=== PATIENT | male | born 1940 | race Caucasian/White ===

== ENCOUNTER 2016-05-03 20:13 | Inpatient (IN) | payer MEDICARE ==
[~2016-05-03] VITALS: Ht 182.9 cm; Wt 75.5 kg
[~2016-05-03 20:13] MED LIST: Piperacillin-Tazo 3.375 Gm Inj 3.375 GM in Dextrose 5% Minibag Plus 50 ML IV ONE
[2016-05-03] MEDS ORDERED: Ondansetron 2 mg/mL 2 mL Inj IVPUSH PRN (21:50)
[2016-05-03] MEDS ORDERED: Alum-Mag Hydrox-Simeth 30 mL Suspension PO PRN (21:50)
[2016-05-03] MEDS ORDERED: Polyethylene Glycol (PEG) 17 Gm Powder PO PRN (21:50)
[2016-05-03 22:00] VITALS: BP 118/72; PULSE 96; RESP 18; O2SAT 96
[2016-05-03] MEDS ORDERED: Potassium Chloride 20 mEq SR Tablet PO ONE (22:05)
[2016-05-03] MEDS ORDERED: HYDROmorphone 0.5 mg/0.5 mL iSecure Syringe IVPUSH PRN (22:05)
[2016-05-03] MEDS ORDERED: 0.9% Sodium Chloride 1,000 ML IV SCH (22:05)
--- NOTE | 2016-05-03 22:30 | NUR ---
admission patient direct admit from [facility]. telephone report received from hanna rice. patient alert and oriented x3 on arrival. able to stand for weight. complains of pain to abd. rates "6" . hypoactive bowel tones. abd is soft, tender to palpation. npo. given sponges for mouth moisture. reviewed plan of care with patient. Dr Vera at bedside. patient worried about "surgery tonight." Dr Vera explained ERCP in am. reviewed fall precautions. verbalized udnerstanding. care ongoing.
[2016-05-03 22:48] VITALS: PULSE 92
[2016-05-03] MEDS ORDERED: ASPI81TA3 PO (23:37)
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
[2016-05-03] MEDS ORDERED: 0.9% Sodium Chloride 1,000 ML IV ONE (23:50)
[2016-05-04] VITALS (16 sets, daily range): BP systolic 94–125; BP diastolic 65–78; PULSE 64–140; RESP 12–18; O2SAT 90–97
[2016-05-04] MEDS: Heparin 5,000 Unit/mL Inj SUBQ SCH ×2 (00:20→08:30)
[2016-05-04] MEDS ORDERED: 0.9% Sodium Chloride 500 ML IV ONE ×2 (01:35→03:10)
[2016-05-04] MEDS ORDERED: Lactated Ringer's 1,000 ML IV SCH (03:10)
--- NOTE | 2016-05-04 03:15 | NUR ---
tachycardia notified by tele HR 140. bp as documented. patient pale and diaphoretic. denies pain. ekg obtained. notified Dr Vera. Dr Vera to bedside. patient awake. alert. bladder scan 320. plan to additional ns [address] Vera plan to change iv fluids to LR when bolus is complete will monitor closely
[2016-05-04 04:12] LABS: Mean Corpuscular Hemoglobin 30.8 pg (27.0-35.0); Mean Corpuscular Volume 88.5 fL (81-100); Platelet Count 165 bil/L (150-400)
[2016-05-04 04:24] LABS: INR 1.27 ratio
[2016-05-04 04:30] LABS: Magnesium 1.4 mg/dL (1.6-2.6)
[2016-05-04 04:35] LABS: EOSINOPHILS % (AUTO) 0 % (0-5); MONOCYTES % (AUTO) 4 % (4-12); NEUTROPHILS % (AUTO) 83 % (40-74)
--- NOTE | 2016-05-04 04:35 | NUR ---
unable to void patient unable to void. previous bladder scan 2 hours ago 320ml. has not voided since arrival to the hospital. notified Dr Vera for straight cath. request. Addendum: 05/04/16 at 0626 by JUJU PEREZ RN straight cathed 400ml dark shmuel urine. sent ua.
[2016-05-04 04:36] LABS: BASOPHILS % (AUTO) 0 % (0-3)
[2016-05-04 05:14] LABS: APPEARANCE,URINE CLOUDY (CLEAR,HAZY); COLOR,URINE AMBER (YELLOW); ICTOTEST,URINE POSITIVE (Negative); OCCULT BLOOD,URINE SMALL (NEGATIVE)
--- NOTE | 2016-05-04 05:35 | NUR ---
Blood cultures Phillip [facility] staff called at 0515, reported that patient had two preliminary positive blood cultures, gram negative rods in both anaerobic bottles. paged, no new orders as patient is already on antibiotics. Primary RN aware.
[2016-05-04] MEDS: Sodium Chloride LOK Flush 10 mL Syringe IVFLUSH SCH ×2 (08:30→18:38)
[2016-05-04] MEDS ORDERED: Influenza (Adult) Vaccine 0.5 mL Syringe IM ONE (08:30)
[2016-05-04 10:53] LABS: Mean Corpuscular Volume 88.4 fL (81-100)
[2016-05-04] MEDS ORDERED: 0.9% Sodium Chloride 250 ML ONE (11:07)
[2016-05-04 11:17] LABS: Bilirubin, Direct 4.5 mg/dL (0.0-0.3)
[2016-05-04] MEDS: Piper-Tazo 3.375 Gm/50 mL D5W Minibag Plus - Q8H over 4 hrs IV SCH ×4 (11:28→18:38)
--- NOTE | 2016-05-04 12:45 | NUR ---
Catheter insertion Patient unable to void during AM shift, denies urgency or feeling of needing to void. Bladder scan shows > 400 mL. 16 fr vidales inserted without difficulty (per MD order) and approximately 400 mL dark shmuel urine obtained. Balloon inflated with 10 mL sterile saline without difficulty. Patient tolerated procedure well. Bed low and locked, call light in reach, bed alarm on for safety, care and frequent rounding ongoing.
--- NOTE | 2016-05-04 14:15 | NUR ---
Avendaño Catheter P: Pt unable to void during shift. I: Bladder scanned with >400mL of urine. Per doctors orders, Avendaño catheter was inserted. Slight difficulty on insertion, patient tolerated well. E: 400 mL dark shmuel urine output in catheter bag. Will continue to monitor.
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
--- NOTE | 2016-05-04 15:47 | NUR ---
Off floor to endo Patient off floor to endo at 1545 by denice. Vitals stable, denies pain and in no apparent distress. Chart with patient, material handling technician aware. Report given to endo RN at bedside.
[2016-05-04] MEDS ORDERED: Lactated Ringer's 1,000 ML IV ONE (15:50)
--- NOTE | 2016-05-04 16:03 | PCM.HPANE ---
Patient Data Date of Service: May 04, 2016 Surgeon Admitting Provider:Amber Weller DO Attending Provider:Amber Weller DO Primary Care Physician:Seun Coles MD Other Provider: Reason for Visit Cholangitis CHOLANGITIS Ht/WT & BMI Height (Feet): 6 Height (Inches): 0.00 Weight (Kilograms): 75.500 Body Mass Index 22.00 Allergies Coded Allergies: No Known Allergies (Unverified , 05/03/16) Past Anesthesia History Anesthesia History: Denies:: Anesthesia Reactions, Fam Anesthesia Reaction, Fam Malignant Hypertherm, Malignant Hyperthermia Diabetes History Hx Diabetes?: No MRSA MRSA: No Medications Blood Thinner: Aspirin Hypertension Medication: No Home Meds Incl Beta Ruthie: No Reported Medications Aspirin Chew 81 Mg Chew81 Mg PO DAILY PRN For Headache Ref 0 05/03/16 History History of ENT Problems?: No Hx of Heart Problems?: No Other History/Comments >4 METs Hx of Respiratory Problem?: No Hx Neurologic Problems?: No Hx of GI Problems?: Yes Gastrointestinal History: Positive for:: Gall Bladder Disease (possible stones ) Hx of Problems?: No Male Hx: Denies:: Prostate Problems Hx Musculoskeletal Problems?: No Hx of Psycho/Social Problems?: No Hx Surgeries?: Yes ([facility] for a repair to the left forearm saw accident) Hx Any Other Health Problems?: Yes Other History: Denies:: Cancer Hospitalization Thyroid Disease History Blood Transfusions: Positive for:: Accept Blood Products? Denies:: Blood Transfuse Reaction Blood Transfusions Hx Diabetes: No Hx Alcohol Use: Yes (monthly and light)Hx Substance Use: No Smoking Status: Never Smoker Stop/Bang Treated for Sleep Apnea?: No Do You Have a CPAP Machine?: No S-Snoring: Do You Snore Loudly: No T-Tired: feel tired, fatigued: No O-Obsered: Observed not breath: No P-Blood Pressure: treated: No B- Body Mass Index > 35 kg/m2: No A- Age over 50: Yes N- Neck Large Circumference: No G- Gender Male: Yes BEATRIZ Total Score: 2 Risk Assessment Category Category 1A: Patient has history of documented sleep apnea, and HAS NOT received any narcotic, sedative or anesthesia administration during this stay. Category 1B: Patient has history of documented sleep apnea, and HAS received any narcotic , sedative or anesthesia administration during this stay Category 2: Patient has SUSPECTED Obstructive Sleep Apnea, and HAS received any narcotic , sedative or anesthesia administration during this stay. Category 3: Patient has SUSPECTED Obstructive Sleep Apnea and HAS NOT received narcotic, sedative or anesthesia administration during this stay. Category 4: Outpatient in Procedural Areas with known sleep apnea or who screen positive for High Risk via the STOP/BANG questionnaire. Exam Exam Vital Signs Vital Signs Date Time Temp Pulse Resp B/P Pulse Ox O2 Delivery O2 Flow Rate FiO2 05/04/16 15:51 36.7 65 16 119/77 96 Room Air 05/04/16 13:53 36.6 70 16 120/73 96 Room Air 05/04/16 08:44 36.7 71 16 109/67 96 Room Air 05/04/16 08:00 76 General Appearance: Alert, Oriented X3 HEENT/AIRWAY: MP 1 Lungs: Clear to Auscultation Heart: Regular Rate/Rhythm, No Murmurs/Rubs/Gallops Meds/Labs/Diagnostics Admission Meds Current Medications Sodium Chloride (Normal Saline) 1,000 ml @ 100 mls/hr Q10H IV Last administered on 05/03/16 23:35; Start 05/03/16 at 22:05; Stop 05/04/16 at 03:11; Status DC Potassium Chloride (K-Dur) 20 meq OT ONCE PO Last administered on 05/03/16 23: 49; Start 05/03/16 at 22:05; Stop 05/03/16 at 23:08; Status DC Heparin Sodium (Porcine) 5000 unit 5,000 unit Q8 SUBQ Last administered on 00:20; Start 05/04/16 at 00:30; Stop 05/04/16 at 08:49; Status DC Sodium Chloride 1,000 ml @ 0 mls/hr Q0M ONCE IV Last administered on 05/03/16 23:56; Start 05/03/16 at 23:50; Stop 05/03/16 at 23:51; Status DC Sodium Chloride 500 ml @ 0 mls/hr Q0M ONCE IV Last administered on 05/04/16 02: 46; Start 05/04/16 at 01:35; Stop 05/04/16 at 01:55; Status DC Sodium Chloride 500 ml @ 0 mls/hr Q0M ONCE IV Last administered on 05/04/16 03: 33; Start 05/04/16 at 03:10; Stop 05/04/16 at 03:17; Status DC Lactated Ringer's 1,000 ml @ 100 mls/hr Q10H IV Last administered on 05/04/16 04:21; Start 05/04/16 at 03:10; Stop 05/04/16 at 12:20; Status DC Piperacillin Sod/ Tazobactam Sod 3.375 gm/Dextrose/ Water 50 ml @ 12.5 mls/hr Q8H IV Last administered on 05/04/16 11:28; Start 05/04/16 at 09:30 Sodium Chloride (Normal Saline) 250 ml @ STK-MED ONCE .ROUTE Last administered on 05/04/16 11:29; Start 05/04/16 at 11:07; Stop 05/04/16 at 11:08; Status DC Labs Test 05/04/16 00:15 05/04/16 02:10 05/04/16 03:50 05/04/16 05:00 Hold Mata Top Tube Received (Received) Lactic Acid Level 1.8mmol/L (0.4-2.0) Neutrophils (%) (Auto) 83% (40-74) Lymphocytes (%) (Auto) 4% (14-46) Monocytes (%) (Auto) 4% (4-12) Eosinophils (%) (Auto) 0% (0-5) Basophils (%) (Auto) 0% (0-3) Band Neutrophils % 8% (1-5) Metamyelocytes % 1% (0-0) Erythrocyte Sedimentation Rate 33mm/hr (0-30) Prothrombin Time 13.7sec (8.1-12.5) Prothromb Time International Ratio 1.27ratio Sodium Level 136mEq/L (134-144) Potassium Level 3.8mEq/L (3.5-5.2) Chloride Level 102mEq/L (97-108) Carbon Dioxide Level 18mmol/L (18-29) Blood Urea Nitrogen 29mg/dL (8-27) Creatinine 1.23mg/dL (0.76-1.27) Estimat Glomerular Filtration Rate 61mL/min (>59) Glucose Level 129mg/dL (60-99) Calcium Level 7.5mg/dL (8.5-10.1) Magnesium Level 1.4mg/dL (1.6-2.6) C-Reactive Protein 27.0mg/dL (0.0-0.5) Urine Color Alysa (YELLOW) Urine Appearance Cloudy (CLEAR,HAZY) Urine pH 5.0 (5.0-8.0) Urine Specific [place] 1.025 (1.003-1.035) Urine Protein 100mg/dL (NEG,TRACE) Urine Glucose (UA) Negativemg/dL (NEGATIVE) Urine Ketones Tracemg/dL (NEGATIVE) Urine Occult Blood Small (NEGATIVE) Urine Nitrite Negative (NEGATIVE) Urine Bilirubin Large (NEGATIVE) Urine Ictotest Positive (Negative) Urine Urobilinogen 1.0mg/dL (NORMAL) Urine Leukocyte Esterase Negative (NEGATIVE) Urine RBC 0-2/hpf (0-2) Urine WBC 0-5/hpf (0-5) Urine Epithelial Cells Few/hpf (NONE-MOD) Urine Crystals Amorphous urates (NONE Urine Bacteria Moderate/hpf (NONE-FEW) Urine Hyaline Casts None/lpf (NONE) Urine Granular Casts None seen (NONE SEEN) Urine Waxy Casts None seen (NONE SEEN) Urine Red Blood Cell Casts None seen (NONE SEEN) Urine White Blood Cell Casts None seen (NONE SEEN) Urine Mucus Present (None Seen) Urine Trichomonas None seen (NONE SEEN) Urine Yeast None (NONE SEEN) Urinalysis Comment None Urine Culture Reflexed Indicated Test 05/04/16 10:30 White Blood Count 17.4th/mm3 (3.8-10.1) Red Blood Count 4.04mil/mm3 (4.40-5.80) Hemoglobin 12.1g/dL (13.8-17.2) Hematocrit 35.7% (41.0-50.0) Mean Corpuscular Volume 88.4fL (81-100) Mean Corpuscular Hemoglobin 30.0pg (27.0-35.0) Mean Corpuscular Hemoglobin Concent 33.9% (32.0-37.0) Red Cell Distribution Width 13.8% (12.3-15.4) Platelet Count 137bil/L (150-400) Total Bilirubin 6.3mg/dL (0.0-1.2) Direct Bilirubin 4.5mg/dL (0.0-0.3) Aspartate Amino Transf (AST/SGOT) 271U/L (0-50) Alanine Aminotransferase (ALT/SGPT) 293U/L (0-44) Alkaline Phosphatase 169U/L (25-160) Total Protein 5.1g/dL (6.4-8.4) Albumin 2.9g/dL (3.4-5.0) Lipase 7U/L (13-60) Plan Impression Patient chart reviewed, patient interviewed and anesthestic plan with risks, benefits, and alternatives discussed, and informed consent obtained. ASA Physical Status: ASA2 Mod Systemic Disease Anesthetic Plan: GA Bene/Risks/Altern/Consents: Yes HP Complete Prior to Induction: Yes Helder Rosas MD May 04, 2016 16:03
[2016-05-04] MEDS ORDERED: Lactated Ringer's 500 ML IV PRN (16:04)
--- NOTE | 2016-05-04 16:04 | PCM.HPANE ---
Patient Data Date of Service: May 04, 2016 Surgeon Admitting Provider:Amber Weller DO Attending Provider:Amber Weller DO Primary Care Physician:Seun Coles MD Other Provider: Reason for Visit Cholangitis CHOLANGITIS Ht/WT & BMI Height (Feet): 6 Weight (Kilograms): 75.500 Body Mass Index 22.54 Allergies Coded Allergies: No Known Allergies (Unverified , 05/03/16) Past Anesthesia History Anesthesia History: Denies:: Anesthesia Reactions Diabetes History Hx Diabetes?: No MRSA MRSA: No Medications Reported Medications Aspirin Chew 81 Mg Chew81 Mg PO DAILY PRN For Headache Ref 0 05/03/16 History History of ENT Problems?: No Hx of Heart Problems?: No Hx of Respiratory Problem?: No Hx Neurologic Problems?: No Hx of GI Problems?: Yes (ascending cholangiitis with sepsis) Hx of Problems?: No Male Hx: Denies:: Prostate Problems Hx Musculoskeletal Problems?: No Hx of Psycho/Social Problems?: No Hx Surgeries?: Yes ([facility] for a repair to the left forearm saw accident) Hx Any Other Health Problems?: Yes Other History: Denies:: Cancer Hospitalization Thyroid Disease History Blood Transfusions: Positive for:: Accept Blood Products? Denies:: Blood Transfuse Reaction Blood Transfusions Hx Diabetes: No Hx Alcohol Use: Yes (monthly and light)Hx Substance Use: No Smoking Status: Never Smoker Stop/Bang Treated for Sleep Apnea?: No Do You Have a CPAP Machine?: No S-Snoring: Do You Snore Loudly: No T-Tired: feel tired, fatigued: No O-Obsered: Observed not breath: No P-Blood Pressure: treated: No B- Body Mass Index > 35 kg/m2: No A- Age over 50: Yes N- Neck Large Circumference: No G- Gender Male: Yes BEATRIZ Total Score: 1 Risk Assessment Category Category 1A: Patient has history of documented sleep apnea, and HAS NOT received any narcotic, sedative or anesthesia administration during this stay. Category 1B: Patient has history of documented sleep apnea, and HAS received any narcotic , sedative or anesthesia administration during this stay Category 2: Patient has SUSPECTED Obstructive Sleep Apnea, and HAS received any narcotic , sedative or anesthesia administration during this stay. Category 3: Patient has SUSPECTED Obstructive Sleep Apnea and HAS NOT received narcotic, sedative or anesthesia administration during this stay. Category 4: Outpatient in Procedural Areas with known sleep apnea or who screen positive for High Risk via the STOP/BANG questionnaire. Exam Exam Vital Signs Vital Signs Date Time Temp Pulse Resp B/P Pulse Ox O2 Delivery O2 Flow Rate FiO2 05/04/16 13:53 36.6 70 16 120/73 96 Room Air 05/04/16 08:44 36.7 71 16 109/67 96 Room Air 05/04/16 08:00 76 General Appearance: Alert, Oriented X3 HEENT/AIRWAY: MP 2 Lungs: Clear to Auscultation Heart: Exam Unremarkable, Regular Rate/Rhythm Meds/Labs/Diagnostics Admission Meds Current Medications Sodium Chloride (Normal Saline) 1,000 ml @ 100 mls/hr Q10H IV Last administered on 05/03/16 23:35; Start 05/03/16 at 22:05; Stop 05/04/16 at 03:11; Status DC Potassium Chloride (K-Dur) 20 meq OT ONCE PO Last administered on 05/03/16 23: 49; Start 05/03/16 at 22:05; Stop 05/03/16 at 23:08; Status DC Heparin Sodium (Porcine) 5000 unit 5,000 unit Q8 SUBQ Last administered on 00:20; Start 05/04/16 at 00:30; Stop 05/04/16 at 08:49; Status DC Sodium Chloride 1,000 ml @ 0 mls/hr Q0M ONCE IV Last administered on 05/03/16 23:56; Start 05/03/16 at 23:50; Stop 05/03/16 at 23:51; Status DC Sodium Chloride 500 ml @ 0 mls/hr Q0M ONCE IV Last administered on 05/04/16 02: 46; Start 05/04/16 at 01:35; Stop 05/04/16 at 01:55; Status DC Sodium Chloride 500 ml @ 0 mls/hr Q0M ONCE IV Last administered on 05/04/16 03: 33; Start 05/04/16 at 03:10; Stop 05/04/16 at 03:17; Status DC Lactated Ringer's 1,000 ml @ 100 mls/hr Q10H IV Last administered on 05/04/16 04:21; Start 05/04/16 at 03:10; Stop 05/04/16 at 12:20; Status DC Piperacillin Sod/ Tazobactam Sod 3.375 gm/Dextrose/ Water 50 ml @ 12.5 mls/hr Q8H IV Last administered on 05/04/16 11:28; Start 05/04/16 at 09:30 Sodium Chloride (Normal Saline) 250 ml @ ud STK-MED ONCE .ROUTE Last administered on 05/04/16 11:29; Start 05/04/16 at 11:07; Stop 05/04/16 at 11:08; Status DC Labs Test 05/04/16 00:15 05/04/16 02:10 05/04/16 03:50 05/04/16 05:00 Hold Mata Top Tube Received (Received) Lactic Acid Level 1.8mmol/L (0.4-2.0) Neutrophils (%) (Auto) 83% (40-74) Lymphocytes (%) (Auto) 4% (14-46) Monocytes (%) (Auto) 4% (4-12) Eosinophils (%) (Auto) 0% (0-5) Basophils (%) (Auto) 0% (0-3) Band Neutrophils % 8% (1-5) Metamyelocytes % 1% (0-0) Erythrocyte Sedimentation Rate 33mm/hr (0-30) Prothrombin Time 13.7sec (8.1-12.5) Prothromb Time International Ratio 1.27ratio Sodium Level 136mEq/L (134-144) Potassium Level 3.8mEq/L (3.5-5.2) Chloride Level 102mEq/L (97-108) Carbon Dioxide Level 18mmol/L (18-29) Blood Urea Nitrogen 29mg/dL (8-27) Creatinine 1.23mg/dL (0.76-1.27) Estimat Glomerular Filtration Rate 61mL/min (>59) Glucose Level 129mg/dL (60-99) Calcium Level 7.5mg/dL (8.5-10.1) Magnesium Level 1.4mg/dL (1.6-2.6) C-Reactive Protein 27.0mg/dL (0.0-0.5) Urine Color Alysa (YELLOW) Urine Appearance Cloudy (CLEAR,HAZY) Urine pH 5.0 (5.0-8.0) Urine Specific [place] 1.025 (1.003-1.035) Urine Protein 100mg/dL (NEG,TRACE) Urine Glucose (UA) Negativemg/dL (NEGATIVE) Urine Ketones Tracemg/dL (NEGATIVE) Urine Occult Blood Small (NEGATIVE) Urine Nitrite Negative (NEGATIVE) Urine Bilirubin Large (NEGATIVE) Urine Ictotest Positive (Negative) Urine Urobilinogen 1.0mg/dL (NORMAL) Urine Leukocyte Esterase Negative (NEGATIVE) Urine RBC 0-2/hpf (0-2) Urine WBC 0-5/hpf (0-5) Urine Epithelial Cells Few/hpf (NONE-MOD) Urine Crystals Amorphous urates (NONE Urine Bacteria Moderate/hpf (NONE-FEW) Urine Hyaline Casts None/lpf (NONE) Urine Granular Casts None seen (NONE SEEN) Urine Waxy Casts None seen (NONE SEEN) Urine Red Blood Cell Casts None seen (NONE SEEN) Urine White Blood Cell Casts None seen (NONE SEEN) Urine Mucus Present (None Seen) Urine Trichomonas None seen (NONE SEEN) Urine Yeast None (NONE SEEN) Urinalysis Comment None Urine Culture Reflexed Indicated Test 05/04/16 10:30 White Blood Count 17.4th/mm3 (3.8-10.1) Red Blood Count 4.04mil/mm3 (4.40-5.80) Hemoglobin 12.1g/dL (13.8-17.2) Hematocrit 35.7% (41.0-50.0) Mean Corpuscular Volume 88.4fL (81-100) Mean Corpuscular Hemoglobin 30.0pg (27.0-35.0) Mean Corpuscular Hemoglobin Concent 33.9% (32.0-37.0) Red Cell Distribution Width 13.8% (12.3-15.4) Platelet Count 137bil/L (150-400) Total Bilirubin 6.3mg/dL (0.0-1.2) Direct Bilirubin 4.5mg/dL (0.0-0.3) Aspartate Amino Transf (AST/SGOT) 271U/L (0-50) Alanine Aminotransferase (ALT/SGPT) 293U/L (0-44) Alkaline Phosphatase 169U/L (25-160) Total Protein 5.1g/dL (6.4-8.4) Albumin 2.9g/dL (3.4-5.0) Lipase 7U/L (13-60) Plan Impression Patient chart reviewed, patient interviewed and anesthestic plan with risks, benefits, and alternatives discussed, and informed consent obtained. ASA Physical Status: ASA2 Mod Systemic Disease Anesthetic Plan: GA Bene/Risks/Altern/Consents: Yes HP Complete Prior to Induction: Yes Other see other note...this note created in error Helder Rosas MD May 04, 2016 15:46
[2016-05-04] MEDS ORDERED: fentaNYL-PF 50 mCg/mL 2 mL Inj IVPUSH PRN (16:05)
[2016-05-04] MEDS ORDERED: Ondansetron 2 mg/mL 2 mL Inj IVPUSH PRN (16:05)
[2016-05-04] MEDS ORDERED: hydrALAZINE 20 mg/mL Inj IVPUSH PRN (16:05)
[2016-05-04] MEDS ORDERED: EPHEDrine Sulfate 50 mg/mL Inj IVPUSH PRN (16:05)
[2016-05-04] MEDS ORDERED: Atropine 0.4 mg/mL Inj IVPUSH PRN (16:05)
[2016-05-04] MEDS ORDERED: Labetalol 5 mg/mL 4 mL Inj IV PRN (16:05)
[2016-05-04] MEDS ORDERED: Phenylephrine 10,000 mCg/mL Inj IVPUSH PRN (16:05)
[2016-05-04] MEDS ORDERED: HYDROmorphone 1 mg/mL Inj IVPUSH PRN (16:05)
[2016-05-04] MEDS ORDERED: MetoCLOpramide 5 mg/mL 2 mL Inj IVPUSH PRN (16:05)
[2016-05-04] MEDS: Lactated Ringer's 1,000 ML IV SCH ×2 (16:20→18:37)
--- NOTE | 2016-05-04 16:35 | PCM.PNMED ---
Subjective Date of Service May 04, 2016 Subjective denies any new issues/complaints Exam Vital Signs Vital Sign - Last Date Time Temp Pulse Resp B/P Pulse Ox O2 Delivery O2 Flow Rate FiO2 05/04/16 15:51 36.7 65 16 119/77 96 Room Air 05/04/16 03:07 2.00 Intake and Output 05/03/16 05/03/16 05/04/16 Cumulative From/Thru 15:00 23:00 07:00 05/03/16 22:12 - 05/04/16 04:59 Intake Total 2300 ml 2300 ml Output Total 400 ml 400 ml Balance 1900 ml 1900 ml Intake IV Total 2300 ml 2300 ml Output Urine Total 400 ml 400 ml Exam General: Mildly somnolent but easily aroused, Oriented X3, Cooperative Head: Normocephalic, atraumatic. Eyes:Icteric sclerae. Mouth: Mouth Normal, Mucous Membranes dry Neck: Neck supple with full range of motion. Chest & Lungs: Clear to auscultation bilaterally Cardiovascular: Regular Rate/Rhythm Abdomen: nontender abdominal exam (without rebound tenderness in non- epigastric quadrants), Non-distended, No masses, Hypoactive bowel tones, Soft Musculoskeletal: Normal Range of Motion Extremities: No cyanosis/clubbing/edema bilat Skin: Jaundice. Well-healed surgical scars of the left forearm, and left upper quadrant of the abdomen. Neurological: Grossly Neurologically Intact Psych: Normal mood and affect. Thought process and content intact. IVs and Medications Medications Reviewed: Medications were reviewed in detail Lab and Diagnostics Result Diagram: 05/04/16 1030 05/04/16 0350 Microbiology Blood cultures were drawn at [facility], And I have called and spoken with their lab/micro Department to request that they fax all preliminary and final blood culture reports to the cracking unit operator in the [facility] We will add blood cultures 2 sets (please note that these will be done following the administration of Unasyn at [facility]). X-Rays, CTs and MRIs Abdominal ultrasound performed at [facility]: Impression: 1. Distended gallbladder containing stones and sludge. 2. Choledocholithiasis with associated moderate intrahepatic and extrahepatic biliary ductal dilation. Dr. Ledy Jackson 05/03/16 7:41 PM 12-lead ECG Not performed this visit Assessment & Plan 75-year-old male with no significant past medical history who presented to [facility] ER with 5 day complaint of abdominal pain and fever. # Acute abdominal pain, jaundice, fever. Present on admission. -Clinical presentation consistent with acute ascending cholangitis. -Likely sources of obstruction: Gallstones, stricture, biliary malignancy, sclerosing cholangitis. -appreciate GI consult. will f/u w/ recs -plan for ERCP later today -c/w empiric antibiotics: Zosyn (he did receive a dose of Unasyn at [facility] , but based on our antibiogram Zosyn more appropriate for GNR) given severity of presentation. * Antibiotic course duration likely for 7-10 days, but could be shorter with rapid response and source control. * Adjust antibiotics as appropriate based on blood (and/or other) cultures obtained. -Await blood cultures ([facility] will be faxing preliminary and final blood culture reports) -IV fluids and supportive care # Sepsis, severe and acute. Present on admission. improving -Secondary to above -Management as above # Leukocytosis with bandemia, acute. Present on admission. -Secondary to above -Management as above # Grossly abnormal LFTs, acute. Present on admission. -Management as above # Hypokalemia, acute. Present on admission. -Likely related to sepsis as above -resolved. f/u # Borderline creatinine at 1.2 (unsure of baseline). Present on admission. -Likely related to sepsis as above, and possible contribution from volume depletion (given the patient's dry appearance) -Fluid administration as above Dispo: 2-3 days GI Prophylaxis: Not indicated VTE Prophylaxis: Sub-Q Heparin (Unfractionated) Resuscitation Status: CPR: Attempt Resuscitation Time spent 35 min Naresh Abdul May 04, 2016 16:35
--- NOTE | 2016-05-04 18:14 | PCM.ANEP2 ---
Post Anesthesia Evaluation ASA/CMS Post Anesthesia Date of Service: May 04, 2016 VS in Patient's Normal Range?: Yes Resp Stable; Airway Patent?: Yes CV Function & Hydration Stable: Yes Mental Status Recovered?: Yes Pain control Satisfactory?: Yes N/V Control Satisfactory?: Yes Helder Rosas MD May 04, 2016 18:14
--- NOTE | 2016-05-04 18:14 | PCM.ANEP1 ---
Post Anesthesia Phase 1 PACU Phase 1 Assessment Date of Service: May 04, 2016 Vital Signs Vital Signs Date Time Temp Pulse Resp B/P Pulse Ox O2 Delivery O2 Flow Rate FiO2 05/04/16 15:51 36.7 65 16 119/77 96 Room Air 05/04/16 13:53 36.6 70 16 120/73 96 Room Air Anesthetic Administered: GA Level of Alertness: Sleepy, easy to arouse CESAR's with Equal Strength: Yes Pain: No Nausea or Vomiting: No Oxygen Delivery: Simple Mask Helder Rosas MD May 04, 2016 18:14
[2016-05-04] MEDS: 0.9% Sodium Chloride 1,000 ML IV SCH (19:16)
--- NOTE | 2016-05-04 19:19 | DRSVH ---
PROCEDURE: X-RAY E.R.C. BILIARY DUCTS ([id number]) INDICATIONS: 75 year-old male with cholangitis. TECHNIQUE: 6 fluoroscopic spot films were acquired by the gastroenterology service during ERCP proced ure. COMPARISON: None available. FINDINGS: There is moderate dilation of the extrahepatic bile duct, with distal tapering. Balloon occ lusion cholangiogram demonstrates no discrete intraluminal filling defects to suggest stones. Inferio r vena cava filter is present. IMPRESSION: Moderate dilation of the extrahepatic bile duct, with distal tapering suggesting strictur e or perhaps underlying occult mass. Dictated by: Troy Azevedo M.D. on 05/04/2016 at 19:17 Approved by: Troy Azevedo M.D. on 05/04/2016 at 19:19
--- NOTE | 2016-05-04 19:26 | NUR ---
return to floor patient returned to floor from ercp. alert and oriented x3 npo. given spongees for dry mouth. vs stable. denies pain. bed alarm on.
--- NOTE | 2016-05-04 19:40 | ENDO ---
[address] [address] ENDOSCOPY PROCEDURE PATIENT: GÉNESIS LOMBARDO : 1940 MR#: [id number] ADMIT: 05/03/2016 JOB ID: [id number] PROCEDURE: Endoscopic retrograde cholangiopancreatogram with biliary sphincterotomy, papilla dilatation, stone destruction, and stone extraction. INDICATIONS: A 75-year-old male with cholangitis. COMPLICATIONS: None identified. The patient did appear to have a very mild Bridget-Che tear at the end of the procedure evidenced by some irritation at the level of the GE junction. PROCEDURE INFORMATION: After the risks and benefits were explained, written and verbal informed consent was obtained. The patient was brought into the endoscopy suite and placed into the prone position following induction of anesthesia with endotracheal intubation by Dr. Helder Rosas. The scope was introduced into the mouth, though the bite block, and advanced under indirect visualization to the stomach. The scope was then guided into the second portion of the duodenum. The patient appeared to have had a prior sphincterotomy. PD was easily identified. There was a small patent orifice extending up into the biliary tree with bile emanating from it. This was adjacent a duodenal diverticulum. Wire access was quite easy. We then identified under fluoro a large stone in the mid duct with pretty impressive biliary dilatation upstream, up to about 15 mm or so. We extended the sphincterotomy slightly. We then balloon dilated the sphincterotomy using a Hurricane 10 mm balloon. I then used a 3 cm trapezoid and destroyed part of the stone, dragged it out with the basket. We then cleaned up the biliary tree with a balloon tipped catheter, as we used both a [employer] and a multistaged Olympus catheter over the 0.025 VisiGlide guidewire (the Olympus 20 mm sphincterotome was used to extend the cut). At the end of the procedure, a considerable amount of stone debris was seen successfully removed. Final sweeps of the duct did not yield any further debris and contrast and bile was seen easily flowing from the sphincterotomy. The scope was brought back in the stomach. Excess fluid and air removed. The scope was then withdrawn from the patient, who tolerated the procedure well. An indomethacin suppository was used to prophylax against post ERCP pancreatitis. FINDINGS: As above. ENDOSCOPIC DIAGNOSES: Choledocholithiasis status post extension of biliary sphincterotomy, stone destruction, and stone extraction. RECOMMENDATIONS: 1. Continue antibiotics and n.p.o. status. 2. Surgical consultation to be considered for laparoscopic cholecystectomy. 3. Follow labs. 4. PPI over the least the next week in light of the mild Bridget-Che iatrogenic injury.
--- NOTE | 2016-05-04 21:00 | NUR ---
communication patient's sister Emily to bedside. questions regarding the plan of care for the patient. called Dr Cole, Dr Cole spoke to Emily. Emily is also requesting that she be present when the surgery consult occurs. number at front of chart, to arrange for this.
[2016-05-05] VITALS (7 sets, daily range): BP systolic 109–135; BP diastolic 65–84; PULSE 62–77; RESP 18–20; O2SAT 94–96
[2016-05-05] MEDS: Sodium Chloride LOK Flush 10 mL Syringe IVFLUSH SCH ×3 (00:30→16:30)
[2016-05-05] MEDS: Piper-Tazo 3.375 Gm/50 mL D5W Minibag Plus - Q8H over 4 hrs IV SCH ×6 (01:12→17:28)
[2016-05-05] MEDS: 0.9% Sodium Chloride 1,000 ML IV SCH ×3 (03:51→20:25)
[2016-05-05 06:58] LABS: Mean Corpuscular Hemoglobin 30.5 pg (27.0-35.0)
--- NOTE | 2016-05-05 12:56 | PROG NOTE ---
[address] [address] PROGRESS NOTE PATIENT: GÉNESIS LOMBARDO : 1940 MR#: [id number] ADMIT: 05/03/2016 JOB ID: [id number] DATE: 05/05/2016 SUBJECTIVE: He has done well post ERCP. Denies any pain. OBJECTIVE: Vital signs stable. The patient is in no distress. Abdomen is soft. LABORATORY DATA: Bilirubin is down at 2.9, white count is down to 12.5, hemoglobin 11.7, platelets 130. Blood cultures here are negative. ASSESSMENT AND RECOMMENDATIONS: A 75-year-old male with choledocholithiasis and mild cholangitis by history. He did not have pus seen in the duct at the time of ERCP. I would, however, recommend following up on the blood culture results that were obtained and should be pending, or even potentially resulted, at [facility] from yesterday. In the meantime I would continue antibiotics. I would defer dietary advancement today to Dr. Love. I understand that his surgery is scheduled for tomorrow. I have put the patient on a little proton pump inhibitor while in the hospital in light of the mild irritation at the GE junction from the scope during the procedure. Currently he is asymptomatic on that score. I will sign off for now. Please feel free to contact me with any questions or concerns at [phone]. Please note: Today's visit was a no-charge visit for me. Please do not apply a physician charge for this particular progress note.
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
--- NOTE | 2016-05-05 16:24 | NUR ---
Social Work: Initial Assessment Data: Pt is a 75 y/o male admitted for cholangitis. Pt's PCP is Dr Coles, pt's insurance is Medicare. EMR reviewed. Readmit score is 2. WATER TANKER DRIVER met with pt at bedside, role explained. Pt states he lives in [place] with his brother and sister in a single story home where he uses no DME. Pt has no hx of HH or SNF, pt drives, pt has no LTC or VA benefits. WATER TANKER DRIVER will continue to follow for possible HH need. WATER TANKER DRIVER spoke with pt's sister, Emily, , who requested information for [facility] Medicaid for pt. WATER TANKER DRIVER will call [facility] to request this. Assessment: Pt who is independent at baseline. Plan: Pt will d/c home via POV when medically stable. WATER TANKER DRIVER will call [facility] to request this. WATER TANKER DRIVER will continue to follow for possible HH need. ARUNA Jarrell Addendum: 05/05/16 at 1627 by KASIE NAPOLES Amended: Links added.
--- NOTE | 2016-05-05 17:22 | PCM.PNMED ---
Subjective Date of Service May 05, 2016 Subjective denies any new issues/complaints Exam Vital Signs Vital Sign - Last Date Time Temp Pulse Resp B/P Pulse Ox O2 Delivery O2 Flow Rate FiO2 05/05/16 15:01 36.2 68 20 122/73 94 Nasal Cannula 2.00 Intake and Output 05/04/16 05/04/16 05/05/16 Cumulative From/Thru 15:00 23:00 07:00 05/03/16 22:12 - 05/05/16 06:09 Intake Total 770 ml 1250 ml 4320 ml Output Total 550 ml 1200 ml 2150 ml Balance 220 ml 50 ml 2170 ml Intake Oral 0 ml 0 ml 0 ml IV Total 770 ml 1250 ml 4320 ml Output Urine Total 550 ml 1200 ml 2150 ml Exam General: Alert, Cooperative Head: Normocephalic, atraumatic. Eyes:Icteric sclerae. Mouth: Mouth Normal, Mucous Membranes dry Neck: Neck supple with full range of motion. Chest & Lungs: Clear to auscultation bilaterally Cardiovascular: Regular Rate/Rhythm Abdomen: nontender abdominal exam, Non-distended, No masses, Hypoactive bowel tones, Soft Musculoskeletal: Normal Range of Motion Extremities: No cyanosis/clubbing/edema bilat Skin: Jaundice. Well-healed surgical scars of the left forearm, and left upper quadrant of the abdomen. Neurological: Grossly Neurologically Intact Psych: Normal mood and affect. Thought process and content intact. IVs and Medications Medications Reviewed: Medications were reviewed in detail Lab and Diagnostics Result Diagram: 05/05/16 0620 05/05/16 0500 Microbiology Blood cultures were drawn at [facility], And I have called and spoken with their lab/micro Department to request that they fax all preliminary and final blood culture reports to the community relations liaison in the [facility] We will add blood cultures 2 sets (please note that these will be done following the administration of Unasyn at [facility]). X-Rays, CTs and MRIs Abdominal ultrasound performed at [facility]: Impression: 1. Distended gallbladder containing stones and sludge. 2. Choledocholithiasis with associated moderate intrahepatic and extrahepatic biliary ductal dilation. Dr. Ledy Jackson 05/03/16 7:41 PM 12-lead ECG Not performed this visit Assessment & Plan 75-year-old male with no significant past medical history who presented to [facility] ER with 5 day complaint of abdominal pain and fever. # Acute abdominal pain, jaundice, fever. Present on admission. -Clinical presentation consistent with acute ascending cholangitis. -Likely sources of obstruction: Gallstones, stricture, biliary malignancy, sclerosing cholangitis. -appreciate GI consult. will f/u w/ recs -post Endoscopic retrograde cholangiopancreatogram with biliary sphincterotomy, papilla dilatation, stone destruction, and stone extraction on 05/04/16. -c/w empiric antibiotics: Zosyn -Await blood cultures ([facility] will be faxing preliminary and final blood culture reports) -appreciate surgery consult today as well. tentative plan for lap юлия tomorrow. # Sepsis, severe and acute. Present on admission. clinically resolved. -Secondary to above -Management as above # Leukocytosis with bandemia, acute. Present on admission. resolving -Secondary to above -Management as above # Grossly abnormal LFTs, acute. Present on admission. -Management as above # Hypokalemia, acute. Present on admission. -Likely related to sepsis as above -resolved. f/u # Borderline creatinine at 1.2 (unsure of baseline). Present on admission. Resolved. -Likely related to sepsis as above, and possible contribution from volume depletion (given the patient's dry appearance) -Fluid administration as above Dispo: 2-3 days GI Prophylaxis: Not indicated VTE Prophylaxis: Sub-Q Heparin (Unfractionated) Resuscitation Status: CPR: Attempt Resuscitation Time spent 35 min Naresh Abdul May 05, 2016 17:22
[2016-05-06] VITALS (13 sets, daily range): BP systolic 100–185; BP diastolic 68–90; PULSE 57–74; RESP 18–24; O2SAT 96–100
[2016-05-06] MEDS: Sodium Chloride LOK Flush 10 mL Syringe IVFLUSH SCH ×3 (01:02→15:42)
[2016-05-06] MEDS: Piper-Tazo 3.375 Gm/50 mL D5W Minibag Plus - Q8H over 4 hrs IV SCH ×8 (01:13→17:37)
--- NOTE | 2016-05-06 02:33 | NUR ---
Activity Pt remained in bed for the shift. Cooperative with cares, conversational at times. No complaints of pain or discomfort. Left room with call light in hand.
[2016-05-06] MEDS: Pantoprazole 20 mg ER24 Tablet PO SCH (06:11)
[2016-05-06] MEDS ORDERED: Lidocaine PF 1% 30 mL Inj ONE (07:40)
[2016-05-06] MEDS ORDERED: Propofol 10,000 mCg/mL 20 mL Inj ONE ×2 (07:40→08:33)
[2016-05-06] MEDS ORDERED: Phenylephrine/NS 100 mCg/mL 10 mL Syringe IVPUSH ONE ×2 (07:40→08:33)
[2016-05-06] MEDS ORDERED: Rocuronium 10 mg/mL 5 mL Inj ONE (07:40)
[2016-05-06] MEDS ORDERED: Ondansetron 2 mg/mL 2 mL Inj ONE ×2 (07:40→08:33)
[2016-05-06] MEDS ORDERED: fentaNYL-PF 50 mCg/mL 2 mL Inj ONE ×2 (07:40→08:33)
[2016-05-06] MEDS ORDERED: Glycopyrrolate 0.2 mg/mL 5 mL Inj ONE (07:40)
[2016-05-06] MEDS ORDERED: Dexamethasone 4 mg/mL Inj ONE (07:40)
[2016-05-06] MEDS ORDERED: Neostigmine 1 mg/mL 5 mL Inj ONE (07:40)
[2016-05-06] MEDS: 0.9% Sodium Chloride 1,000 ML IV SCH ×3 (08:30→22:47)
[2016-05-06] MEDS ORDERED: Succinylcholine Chloride 20 mg/mL 5 mL Inj ONE (08:33)
[2016-05-06] MEDS ORDERED: EPHEDrine/NS 5 mg/mL 5 mL Syringe ONE (08:33)
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
[2016-05-06] MEDS ORDERED: Lactated Ringer's 1,000 ML IV ONE (09:23)
[2016-05-06] MEDS ORDERED: Iopamidol-300 50 mL Inj IV ONE (10:21)
[2016-05-06] MEDS ORDERED: Bupivacaine 0.5%/EPI 50 mL Inj INFILTRATE ONE (10:21)
[2016-05-06] MEDS ORDERED: Lactated Ringer's 500 ML IV PRN (10:51)
[2016-05-06] MEDS ORDERED: Lactated Ringer's 1,000 ML IV SCH (10:51)
[2016-05-06] MEDS ORDERED: fentaNYL-PF 50 mCg/mL 2 mL Inj IVPUSH PRN (10:55)
[2016-05-06] MEDS ORDERED: Phenylephrine 10,000 mCg/mL Inj IVPUSH PRN (10:55)
[2016-05-06] MEDS ORDERED: EPHEDrine Sulfate 50 mg/mL Inj IM PRN (10:55)
[2016-05-06] MEDS ORDERED: HYDROmorphone 1 mg/mL Inj IVPUSH PRN (10:55)
[2016-05-06] MEDS ORDERED: Ondansetron 2 mg/mL 2 mL Inj IVPUSH PRN (10:55)
[2016-05-06] MEDS ORDERED: hydrOXYzine Inj 25 MG/1 mL SDV IM PRN (10:55)
[2016-05-06] MEDS ORDERED: EPHEDrine Sulfate 50 mg/mL Inj IVPUSH PRN (10:55)
--- NOTE | 2016-05-06 10:57 | NUR ---
ALEX attempted Pt out of room for surgery. Cari Martinez MSW
--- NOTE | 2016-05-06 15:42 | PCM.PNMED ---
Subjective Date of Service May 06, 2016 Subjective denies any new issues/complaints Exam Vital Signs Vital Sign - Last Date Time Temp Pulse Resp B/P Pulse Ox O2 Delivery O2 Flow Rate FiO2 05/06/16 14:08 36.4 58 19 100/68 98 Nasal Cannula 2.00 Intake and Output 05/05/16 05/05/16 05/06/16 Cumulative From/Thru 15:00 23:00 07:00 05/03/16 22:12 - 05/06/16 06:38 Intake Total 1924 ml 1583 ml 7827 ml Output Total 700 ml 900 ml 3750 ml Balance 1224 ml 683 ml 4077 ml Intake Oral 596 ml 400 ml 996 ml IV Total 1328 ml 1183 ml 6831 ml Output Urine Total 700 ml 900 ml 3750 ml # Bowel Movements 1 0 1 Exam General: Alert, Cooperative Head: Normocephalic Eyes:Icteric sclerae (improving) Mouth: Mucous Membranes moist Neck: Neck supple with full range of motion. Chest & Lungs: Clear to auscultation bilaterally Cardiovascular: Regular Rate/Rhythm Abdomen: nontender abdominal exam, Non-distended, No masses, Hypoactive bowel tones, Soft Musculoskeletal: Normal Range of Motion Extremities: No cyanosis/clubbing/edema bilat Neurological: Grossly Neurologically Intact IVs and Medications Medications Reviewed: Medications were reviewed in detail Lab and Diagnostics Result Diagram: 05/05/16 0620 05/05/16 0500 Microbiology Blood cultures were drawn at [facility], And I have called and spoken with their lab/micro Department to request that they fax all preliminary and final blood culture reports to the community relations representative in the [facility] We will add blood cultures 2 sets (please note that these will be done following the administration of Unasyn at [facility]). X-Rays, CTs and MRIs Abdominal ultrasound performed at [facility]: Impression: 1. Distended gallbladder containing stones and sludge. 2. Choledocholithiasis with associated moderate intrahepatic and extrahepatic biliary ductal dilation. Dr. Ledy Jackson 05/03/16 7:41 PM 12-lead ECG Not performed this visit Assessment & Plan 75-year-old male with no significant past medical history who presented to [facility] ER with 5 day complaint of abdominal pain and fever. # Acute abdominal pain, jaundice, fever. Present on admission. -Clinical presentation consistent with acute ascending cholangitis. -Likely sources of obstruction: Gallstones, stricture, biliary malignancy, sclerosing cholangitis. -appreciate GI consult. will f/u w/ recs -post Endoscopic retrograde cholangiopancreatogram with biliary sphincterotomy, papilla dilatation, stone destruction, and stone extraction on 05/04/16. -c/w empiric antibiotics: Zosyn -Await blood cultures ([facility] will be faxing preliminary and final blood culture reports) -appreciate surgery consult today as well. tentative plan for lap юлия today # Sepsis, severe and acute. Present on admission. clinically resolved. -Secondary to above -Management as above # Leukocytosis with bandemia, acute. Present on admission. resolving -Secondary to above -Management as above # Grossly abnormal LFTs, acute. Present on admission. -Management as above # Hypokalemia, acute. Present on admission. -Likely related to sepsis as above -resolved. f/u # Borderline creatinine at 1.2 (unsure of baseline). Present on admission. Resolved. -Likely related to sepsis as above, and possible contribution from volume depletion (given the patient's dry appearance) -Fluid administration as above Dispo: 1-2 days GI Prophylaxis: Not indicated VTE Prophylaxis: Sub-Q Heparin (Unfractionated) Resuscitation Status: CPR: Attempt Resuscitation Naresh Abdul May 06, 2016 15:42
--- NOTE | 2016-05-06 16:24 | NUR ---
Left unit Pt left [facility] room 3031 for OR at ~0930 this am after signing procedural consent, Pt due to receive IV zosyn, dose sent with receiving RN which was administered in OR per report. Pt returned to [facility] room 3031 after surgery, no overt bleeding noted, VSS on 2L via nasal cannula. Pt drowsy, but awakens easily. Pt reporting pain in incision, given PRN oxycodone dose which was effective.
--- NOTE | 2016-05-06 16:38 | NUR ---
Social Work: Brief note SENIOR WINDOWS ENGINEER left a message with [employer] requesting they meet with pt regarding Medicaid application per request by pt and pt's sister. Pt's sister requested to be called by [employer], SENIOR WINDOWS ENGINEER left her phone number and name with them: Emily, [phone]. ARUNA Jarrell
--- NOTE | 2016-05-06 20:46 | OP ---
[address] [address] OPERATIVE REPORT PATIENT: GÉNESIS LOMBARDO : 1940 MR#: [id number] ADMIT: 05/03/2016 JOB ID: [id number] DATE OF SURGERY: 05/06/2016 PREOPERATIVE DIAGNOSIS(ES): Symptomatic gallstones. POSTOPERATIVE DIAGNOSIS(ES): Symptomatic gallstones with liver abnormality of the left lobe of the liver. PROCEDURE: 1. Laparoscopic cholecystectomy. 2. Laparoscopic liver biopsy. SURGEON: Logan Love MD. MANDREL MAKER: Neema Bernal PA-C. INDICATIONS: A 75-year-old man who presented with ascending cholangitis. He is status post ERCP. He has multiple gallstones, and after questioning, it sounds as if he does have symptomatic gallstones. He would like to proceed with a laparoscopic cholecystectomy this hospitalization. He presents after informed consent with himself and his sister. FINDINGS: 1. A assembler surgical garment was medically necessary for safe completion of the procedure. 2. Evidence of mild chronic cholecystitis. 3. His liver had a somewhat nodular appearance on the right lobe, hypertrophied Constance's lobe, but the left lateral lobe of the liver was quite odd in appearance and different than the right lobe with a spreading white nodular pattern around Chucky's capsule and one area of indentation. I elected to biopsy this. DESCRIPTION OF PROCEDURE: The patient was brought to the operating room. SCOAP protocol was followed. He was given a general anesthetic. He received perioperative antibiotics. Surgical time-out was performed. We began with a Veress needle in the periumbilical region, followed by a 5 mm optical trocar. The abdomen was explored. He had a very large falciform ligament. The liver had a somewhat irregular appearance though was not nodular. The left lobe in markedly different appearance than the right, seemed to be a bit shrunken with a white nodular, almost sclerotic look to the Chucky's capsule, along with one area of indentation in the left lateral lobe of unclear etiology. I elected to biopsy this and took several small bites with forceps and achieved hemostasis with electrocautery. Specimen sent to pathology. We now returned to the cholecystectomy. Three additional ports were placed. The gallbladder was retracted cephalad. We took down adhesions of the greater omentum and transverse colon mesentery to the gallbladder. We dissected out the triangle of Calot. We clipped and cauterized the cystic artery. We identified what I thought was a very large, patulous and relatively short cystic duct that was partially thinned out from the recent passage of common duct stones. Having obtained a critical view of safety, I elected against performing cholangiogram as I was concerned that the cystic duct might be quite short and I; therefore, placed two clips on the patient's side and one clip on the gallbladder side and divided it. I did use the Hemoclips. We now used cautery to dissect the gallbladder off liver bed without any spillage of bile or stones. The gallbladder was removed in a bag to avoid wound contamination. We now checked for adequate hemostasis, that our clips were intact. We irrigated out the abdomen, suctioned out all of our irrigant, rechecked the area of the liver biopsy, and then removed our ports. We closed the wounds with absorbable suture. The patient went to recovery room. I do I have a very low index of suspicion that liver biopsy will demonstrate a malignancy. Patient's diet will be advanced as tolerated tonight.
[2016-05-07] MEDS: Sodium Chloride LOK Flush 10 mL Syringe IVFLUSH SCH ×2 (00:37→09:02)
[2016-05-07] MEDS: Piper-Tazo 3.375 Gm/50 mL D5W Minibag Plus - Q8H over 4 hrs IV SCH ×4 (00:49→09:03)
[2016-05-07] MEDS: 0.9% Sodium Chloride 1,000 ML IV SCH (05:06)
[2016-05-07 05:11] VITALS: BP 132/75; PULSE 60; RESP 20; O2SAT 96
[2016-05-07] MEDS: Pantoprazole 20 mg ER24 Tablet PO SCH (06:13)
--- NOTE | 2016-05-07 06:23 | NUR ---
Diet: Pt has been tolerating a clear liquid diet without issues. Dressing to abdomen are clean, dry, and intact. Denies pain.
[2016-05-07 07:43] LABS: BASOPHILS % (AUTO) 0.2 % (0-3); EOSINOPHILS % (AUTO) 0.1 % (0-5); MONOCYTES % (AUTO) 7.6 % (4-12); Mean Corpuscular Hemoglobin 30.2 pg (27.0-35.0); Mean Corpuscular Volume 87.9 fL (81-100); NEUTROPHILS % (AUTO) 81.9 % (40-74); Platelet Count 154 bil/L (150-400)
--- NOTE | 2016-05-07 10:41 | NUR ---
Social Work-readiness for discharge: Data:EMR reviewed. Pt is on day 4 of hospitalization for cholangitis per H&P. Pt may be ready to discharge later today or tomorrow. SW met with pt and sister Emily at bedside, SW role explained. Pt resides at home with his family in [place]. SW confirmed that [facility] had met with pt and sister and did start Medicaid application with them. SW provided [facility] application also. SW discussed HH services, pt and sister are not sure if they are interested at this time. Per RN notes, pt has up independent in his room. Pt's sister to provide transport home at discharge. SW will continue to follow. Assessment:Pt who is independent at baseline. Plan:Pt to discharge home with family when medically stable via POV. At this pt and sister declining HH services. W will continue to follow. ARUNA Escobedo
[2016-05-07] MEDS ORDERED: levoFLOXacin Dose Per Pharmacist XX ONE (11:15)
--- NOTE | 2016-05-07 11:34 | PCM.PNSURG ---
Subjective Date of Service: May 07, 2016 Date of Service: May 07, 2016 Visit Information: Reason for Visit: Postop Care for Cholangitis Surgery: 1. Laparoscopic cholecystectomy. 2. Laparoscopic liver biopsy. Post-Op Day # 1 Date of Admission: May 03, 2016 at 21:47 Subjective: The patient is sitting up in bed, states abdominal pain is greatly improved. Tolerating current diet. Has not been out of bed waling since surgery. Postop General: No Complaints (small bit of incisional pain) Gastrointestinal: Tolerating Oral Feedings, No N/V, No Belching Pain Management: PO Postop Activity: Other (Has not ambulated since surgery) Objective Vital Sign- Last 8 Hours Date Time Temp Pulse Resp B/P Pulse Ox O2 Delivery O2 Flow Rate FiO2 05/07/16 09:15 Supplement Oxygen 05/07/16 05:11 36.7 60 20 132/75 96 Nasal Cannula 1.00 Intake and Output- Last 8 Hour 05/07/16 Cumulative From/Thru 07:00 05/03/16 22:12 - 05/07/16 05:12 Intake Total 1276 ml 44250 ml Output Total 5530 ml Balance 1276 ml 5442 ml Intake Oral 996 ml IV Total 1276 ml 9976 ml Output Urine Total 5530 ml # Bowel Movements 1 General: Alert, Oriented X3, No Acute Distress Lungs: Clear to Auscultation Heart: Regular Rate/Rhythm, Normal S1, Normal S2 Abdomen: Soft, Appropriately tender, Non-distended, Normoactive bowel tones Extremities: Thigh&Calf Soft/Nontender Neuro: Grossly Neurologically Intact Catheters: Urethral 2 Way Avendaño Result Diagram: 05/07/16 0715 05/07/16 0715 Assessment & Plan Impression 75 yo male S/P Laparoscopic Cholecystectomy and liver Bx Surgically stable. Problems: Plan # Acute abdominal pain, jaundice, fever. Present on admission. S/P Laparoscopic Cholecystectomy Surgically stable # Sepsis, severe and acute. Present on admission. clinically resolved. July D/C ABX from General surgery standpoint # Leukocytosis with bandemia, acute. Present on admission. resolving WBC's trending down # Grossly abnormal LFTs, acute. Present on admission. LFT's trending down # Hypokalemia, acute. Present on admission. Resolved -Likely related to sepsis as above # Borderline creatinine at 1.2 (unsure of baseline). Present on admission. Resolved. # Disposition Spoke with Dr. Franko rowley advance diet and D/C home from General surgery standpoint Pain Management: PO Oxycodone VTE Prophylaxis: Sub-Q Heparin (Unfractionated) Resuscitation Status: CPR: Attempt Resuscitation Neema Bernal PA-C May 07, 2016 11:34
[2016-05-07] MEDS ORDERED: levoFLOXacin 750 mg Tablet PO ONE (11:40)
[2016-05-07] MEDS ORDERED: LEVO750T39 PO (11:55)
[2016-05-07] MEDS ORDERED: PANT20TA2 PO (11:55)
[2016-05-07] MEDS ORDERED: OXYC5TAB72 PO (11:55)
--- NOTE | 2016-05-07 12:03 | PCM.DIMED ---
Discharge Instructions Date of Service May 07, 2016 Dates of Hospitalization May 03, 2016 at 21:47 Discharge Diagnosis Discharge Diagnosis # Acute abdominal pain, jaundice, fever. Present on admission. Resolved # Acute ascending cholangitis. - post Endoscopic retrograde cholangiopancreatogram with biliary sphincterotomy , papilla dilatation, stone destruction, and stone extraction on 05/04/16. - post Laparoscopic cholecystectomy and liver biopsy on 05/06/16 # Acute E. Coli bacteremia. present on admission. Resolving. # Severe and acute sepsis with source ascending cholangitis and E. Coli Bacteremia. Present on admission. Clinically Resolved. # Leukocytosis with bandemia, acute. Present on admission. Resolving # Grossly abnormal liver enzymes, acute. Present on admission. Improving. # Acute hypokalemia. Present on admission. Resolved. Diet No restrictions Activity No restrictions Call your provider Fever or Chills, Shortness of breath, Bleeding, Chest pain, Vomitting, Excessive diarrhea Patient Instructions Seek immediate medical attention if any new or worsening signs or symptoms occur. Follow-up plan 1. Followup with primary care provider (Dr. Coles) in 3-4 days 2. Followup with general surgery (Dr. Love or his physician dental assistant medical assistant) in one week. [address] [address] Follow-up Provider: Seun Coles MD Provider: Logan Love MD, Masoud May 07, 2016 12:03
--- NOTE | 2016-05-07 12:27 | NUR ---
Avendaño removed at 1220 Per MD orders. Pt instructed to use call light before ambulating, will assess ability to urinate by self before discharge.
[2016-05-07 14:27] VITALS: BP 144/90; PULSE 77; RESP 20; O2SAT 96
--- NOTE | 2016-05-07 15:52 | NUR ---
Social Work- discharge: Data:EMR reviewed. Pt is on day 4 of hospitalization for cholangitis per H&P. Pt is ready to discharge today. MARYANN met with pt and sister Emily at bedside early this morning, SW role explained. Pt resides at home with his family in [place]. SW confirmed that [facility] had met with pt and sister and did start Medicaid application with them. SW provided [facility] application also. Pt and sister not interested in HH at this time. No other discharge needs identified. All updated and agreeable to plan. Assessment:Pt who is independent at baseline. Plan:Pt to discharge home today via POV. No discharge needs identified. All updated and agreeable to plan. ARUNA Escobedo
--- NOTE | 2016-05-07 16:03 | PCM.DC.MED ---
Discharge Summary Date of Service May 07, 2016 Dates of Hospitalization Date of Hospital Admission May 03, 2016 at 21:47 Date of Discharge: May 07, 2016 Providers: Admitting Physician: Amber Weller DO Primary Care Physician: Seun Coles MD Attending Physician: Amber Weller DO Diagnosis at Time of Discharge Diagnosis at Time of Discharge # Acute abdominal pain, jaundice, fever. Present on admission. Resolved # Acute ascending cholangitis. - post Endoscopic retrograde cholangiopancreatogram with biliary sphincterotomy , papilla dilatation, stone destruction, and stone extraction on 05/04/16. - post Laparoscopic cholecystectomy and liver biopsy on 05/06/16 # Acute E. Coli bacteremia. present on admission. Resolving. # Severe and acute sepsis with source ascending cholangitis and E. Coli Bacteremia. Present on admission. Clinically Resolved. # Leukocytosis with bandemia, acute. Present on admission. Resolving # Grossly abnormal liver enzymes, acute. Present on admission. Improving. # Acute hypokalemia. Present on admission. Resolved. Consultations 1. GI 2. Surgery Procedures XRay, CTs & MRIs Abdominal ultrasound performed at [facility].: Impression: 1. Distended gallbladder containing stones and sludge. 2. Choledocholithiasis with associated moderate intrahepatic and extrahepatic biliary ductal dilation. Dr. Ledy Jackson 05/03/16 7:41 PM ECG 12 Lead Not performed this visit Invasive Procedures PROCEDURE: Endoscopic retrograde cholangiopancreatogram with biliary sphincterotomy, papilla dilatation, stone destruction, and stone extraction. INDICATIONS: A 75-year-old male with cholangitis. COMPLICATIONS: None identified. The patient did appear to have a very mild Bridget-Che tear at the end of the procedure evidenced by some irritation at the level of the GE junction. PROCEDURE INFORMATION: After the risks and benefits were explained, written and verbal informed consent was obtained. The patient was brought into the endoscopy suite and placed into the prone position following induction of anesthesia with endotracheal intubation by Dr. Helder Rosas. The scope was introduced into the mouth, though the bite block, and advanced under indirect visualization to the stomach. The scope was then guided into the second portion of the duodenum. The patient appeared to have had a prior sphincterotomy. PD was easily identified. There was a small patent orifice extending up into the biliary tree with bile emanating from it. This was adjacent a duodenal diverticulum. Wire access was quite easy. We then identified under fluoro a large stone in the mid duct with pretty impressive biliary dilatation upstream, up to about 15 mm or so. We extended the sphincterotomy slightly. We then balloon dilated the sphincterotomy using a Hurricane 10 mm balloon. I then used a 3 cm trapezoid and destroyed part of the stone, dragged it out with the basket. We then cleaned up the biliary tree with a balloon tipped catheter, as we used both a [employer] and a multistaged Olympus catheter over the 0.025 VisiGlide guidewire (the Olympus 20 mm sphincterotome was used to extend the cut). At the end of the procedure, a considerable amount of stone debris was seen successfully removed. Final sweeps of the duct did not yield any further debris and contrast and bile was seen easily flowing from the sphincterotomy. The scope was brought back in the stomach. Excess fluid and air removed. The scope was then withdrawn from the patient, who tolerated the procedure well. An indomethacin suppository was used to prophylax against post ERCP pancreatitis. FINDINGS: As above. ENDOSCOPIC DIAGNOSES: Choledocholithiasis status post extension of biliary sphincterotomy, stone destruction, and stone extraction. RECOMMENDATIONS: 1. Continue antibiotics and n.p.o. status. 2. Surgical consultation to be considered for laparoscopic cholecystectomy. 3. Follow labs. 4. PPI over the least the next week in light of the mild Bridget-Che iatrogenic injury. Azam Cole MD 05/04/16 1751 DATE OF SURGERY: 05/06/2016 PREOPERATIVE DIAGNOSIS(ES): Symptomatic gallstones. POSTOPERATIVE DIAGNOSIS(ES): Symptomatic gallstones with liver abnormality of the left lobe of the liver. PROCEDURE: 1. Laparoscopic cholecystectomy. 2. Laparoscopic liver biopsy. SURGEON: Logan Love MD. TINNER AUTOMATIC: Neema Bernal PA-C. INDICATIONS: A 75-year-old man who presented with ascending cholangitis. He is status post ERCP. He has multiple gallstones, and after questioning, it sounds as if he does have symptomatic gallstones. He would like to proceed with a laparoscopic cholecystectomy this hospitalization. He presents after informed consent with himself and his sister. FINDINGS: 1. A assistant financial accountant was medically necessary for safe completion of the procedure. 2. Evidence of mild chronic cholecystitis. 3. His liver had a somewhat nodular appearance on the right lobe, hypertrophied Constance's lobe, but the left lateral lobe of the liver was quite odd in appearance and different than the right lobe with a spreading white nodular pattern around Chucky's capsule and one area of indentation. I elected to biopsy this. DESCRIPTION OF PROCEDURE: The patient was brought to the operating room. SCOAP protocol was followed. He was given a general anesthetic. He received perioperative antibiotics. Surgical time-out was performed. We began with a Veress needle in the periumbilical region, followed by a 5 mm optical trocar. The abdomen was explored. He had a very large falciform ligament. The liver had a somewhat irregular appearance though was not nodular. The left lobe in markedly different appearance than the right, seemed to be a bit shrunken with a white nodular, almost sclerotic look to the Chucky's capsule, along with one area of indentation in the left lateral lobe of unclear etiology. I elected to biopsy this and took several small bites with forceps and achieved hemostasis with electrocautery. Specimen sent to pathology. We now returned to the cholecystectomy. Three additional ports were placed. The gallbladder was retracted cephalad. We took down adhesions of the greater omentum and transverse colon mesentery to the gallbladder. We dissected out the triangle of Calot. We clipped and cauterized the cystic artery. We identified what I thought was a very large, patulous and relatively short cystic duct that was partially thinned out from the recent passage of common duct stones. Having obtained a critical view of safety, I elected against performing cholangiogram as I was concerned that the cystic duct might be quite short and I; therefore, placed two clips on the patient's side and one clip on the gallbladder side and divided it. I did use the Hemoclips. We now used cautery to dissect the gallbladder off liver bed without any spillage of bile or stones. The gallbladder was removed in a bag to avoid wound contamination. We now checked for adequate hemostasis, that our clips were intact. We irrigated out the abdomen, suctioned out all of our irrigant, rechecked the area of the liver biopsy, and then removed our ports. We closed the wounds with absorbable suture. The patient went to recovery room. I do I have a very low index of suspicion that liver biopsy will demonstrate a malignancy. Patient's diet will be advanced as tolerated tonight. Logan Love MD 05/06/16 1531 <Electronically signed by Logan Love MD> 05/07/16 0658 Other Diagnostics Date of Service: 05/04/16 1515 PROCEDURE: X-RAY E.R.C. BILIARY DUCTS ([id number]) IMPRESSION: Moderate dilation of the extrahepatic bile duct, with distal tapering suggesting stricture or perhaps underlying occult mass. Dictated by: Troy Azevedo M.D. on 05/04/2016 at 19:17 Approved by: Troy Azevedo M.D. on 05/04/2016 at 19:19 Brief History As noted in H&P by Dr. Bose: This is a 75-year-old male with past medical history significant for traumatic brain injury, BPH, and chronic headaches who was transferred to [facility] on [facility] due to abdominal pain, fever, and elevated liver enzymes. The patient's gastrointestinal history is includes a colonoscopy that was performed approximately 1 year ago. The patient reports that there are no concerning abnormalities but stated that the eclectic doctor wanted him to follow-up in 5 years. He has no personal or family history of gastrointestinal cancer . Due to cognitive impairment the patient is a difficult historian. He states that approximately a year ago he began to develop abdominal pain in his right upper quadrant and midepigastric area that is described as a pressure-like feeling. He does not associate this pain with food. He has taken Pepto-Bismol in the past for the pain that is minimally effective. Beginning on 04/30/2016 the patient began having worsening abdominal pain in the right upper quadrant and midepigastric area. This was associated with nausea. He did try to self- induce vomit but was unsuccessful. He states that he did this because of a pressure-like feeling in his abdomen that he felt would be relieved by vomiting. He also reports subjective fevers and decreased appetite beginning Saturday. He denies any diarrhea or constipation, hematochezia, melena, hemoptysis, hematemesis, chest pain or pressure, shortness of breath, numbness or tingling extremities, fevers, weight loss.. He does not drink alcohol nor does he smoke cigarettes. Documentation from [facility] shows that the patient's temperature was 38C, heart rate 118, respiratory rate 32. Abdominal imaging showed distended gallbladder with stones and sludge, choledocholithiasis and associated moderate intrahepatic and extrahepatic biliary duct dilation. He was given 1 dose of Unasyn at [facility]. Upon arriving to [facility] the patient's temperature was 36.7 Celsius, pulse 96, respiratory rate 18, blood pressure 118/72, satting at 96% on room air. He has remained afebrile throughout his hospital stay thus far. Initial laboratory results showed P WBC 21.6 with left shift, hemoglobin 12.3, hematocrit 35.3, platelets 165. CMP showed lactic acid of 2.6 which corrected to 1.8. Total bilirubin 6.9, direct bilirubin 4.5, AST 281, ALT 312, alkaline phosphatase 179, CRP 27, albumin 2.8 lipase was 7. At [facility] patient was started on Zosyn for better gram-negative al coverage. Hospital Course # Acute abdominal pain, jaundice, fever. Present on admission. -Clinical presentation consistent with acute ascending cholangitis. -Likely sources of obstruction: Gallstones, stricture, biliary malignancy, sclerosing cholangitis. -appreciate GI consult. will f/u w/ recs -post Endoscopic retrograde cholangiopancreatogram with biliary sphincterotomy, papilla dilatation, stone destruction, and stone extraction on 05/04/16. -post Laparoscopic cholecystectomy and Laparoscopic liver biopsy on 05/06/16 -treated w/ empiric antibiotics: Zosyn during this hospital -Blood cultures from [facility] showing berman-sensitive E. Coli - will d/c home w/ PO Levo to finish 14 day course of treatment # Sepsis, severe and acute. Present on admission. clinically resolved. -Secondary to above -Management as above # Leukocytosis with bandemia, acute. Present on admission. resolving -Secondary to above -Management as above # Grossly abnormal LFTs, acute. Present on admission. -Management as above # Hypokalemia, acute. Present on admission. -Likely related to sepsis as above -resolved. # Borderline creatinine at 1.2 (unsure of baseline). Present on admission. Resolved. -Likely related to sepsis as above, and possible contribution from volume depletion (given the patient's dry appearance) by day of d/c lungs CTA bilat. abdomen soft, mildly distended, mildly tender with +bs. tolerating advancing diet and cleared for d/c per surgery. Exam Vital Signs (Last) Date Time Temp Pulse Resp B/P Pulse Ox O2 Delivery O2 Flow Rate FiO2 05/07/16 14:27 37.3 77 20 144/90 96 Room Air 05/07/16 05:11 1.00 Test 05/04/16 00:15 05/04/16 02:10 05/04/16 03:50 05/04/16 05:00 Hold Mata Top Tube Received (Received) Lactic Acid Level 1.8mmol/L (0.4-2.0) Band Neutrophils % 8% (1-5) Metamyelocytes % 1% (0-0) Erythrocyte Sedimentation Rate 33mm/hr (0-30) Prothrombin Time 13.7sec (8.1-12.5) Prothromb Time International Ratio 1.27ratio C-Reactive Protein 27.0mg/dL (0.0-0.5) Urine Color Alysa (YELLOW) Urine Appearance Cloudy (CLEAR,HAZY) Urine pH 5.0 (5.0-8.0) Urine Specific [place] 1.025 (1.003-1.035) Urine Protein 100mg/dL (NEG,TRACE) Urine Glucose (UA) Negativemg/dL (NEGATIVE) Urine Ketones Tracemg/dL (NEGATIVE) Urine Occult Blood Small (NEGATIVE) Urine Nitrite Negative (NEGATIVE) Urine Bilirubin Large (NEGATIVE) Urine Ictotest Positive (Negative) Urine Urobilinogen 1.0mg/dL (NORMAL) Urine Leukocyte Esterase Negative (NEGATIVE) Urine RBC 0-2/hpf (0-2) Urine WBC 0-5/hpf (0-5) Urine Epithelial Cells Few/hpf (NONE-MOD) Urine Crystals Amorphous urates (NONE Urine Bacteria Moderate/hpf (NONE-FEW) Urine Hyaline Casts None/lpf (NONE) Urine Granular Casts None seen (NONE SEEN) Urine Waxy Casts None seen (NONE SEEN) Urine Red Blood Cell Casts None seen (NONE SEEN) Urine White Blood Cell Casts None seen (NONE SEEN) Urine Mucus Present (None Seen) Urine Trichomonas None seen (NONE SEEN) Urine Yeast None (NONE SEEN) Urinalysis Comment None Urine Culture Reflexed Indicated Test 05/04/16 10:30 05/05/16 05:00 05/07/16 07:15 Direct Bilirubin 4.5mg/dL (0.0-0.3) Lipase 7U/L (13-60) Magnesium Level 2.0mg/dL (1.6-2.6) White Blood Count 12.2th/mm3 (3.8-10.1) Red Blood Count 4.20mil/mm3 (4.40-5.80) Hemoglobin 12.7g/dL (13.8-17.2) Hematocrit 36.9% (41.0-50.0) Mean Corpuscular Volume 87.9fL (81-100) Mean Corpuscular Hemoglobin 30.2pg (27.0-35.0) Mean Corpuscular Hemoglobin Concent 34.4% (32.0-37.0) Red Cell Distribution Width 13.9% (12.3-15.4) Platelet Count 154bil/L (150-400) Neutrophils (%) (Auto) 81.9% (40-74) Lymphocytes (%) (Auto) 7.5% (14-46) Monocytes (%) (Auto) 7.6% (4-12) Eosinophils (%) (Auto) 0.1% (0-5) Basophils (%) (Auto) 0.2% (0-3) Sodium Level 139mEq/L (134-144) Potassium Level 4.5mEq/L (3.5-5.2) Chloride Level 106mEq/L (97-108) Carbon Dioxide Level 21mmol/L (18-29) Blood Urea Nitrogen 16mg/dL (8-27) Creatinine 0.82mg/dL (0.76-1.27) Estimat Glomerular Filtration Rate 98mL/min (>59) Glucose Level 127mg/dL (60-99) Calcium Level 7.5mg/dL (8.5-10.1) Total Bilirubin 2.0mg/dL (0.0-1.2) Aspartate Amino Transf (AST/SGOT) 54U/L (0-50) Alanine Aminotransferase (ALT/SGPT) 129U/L (0-44) Alkaline Phosphatase 131U/L (25-160) Total Protein 4.9g/dL (6.4-8.4) Albumin 2.4g/dL (3.4-5.0) Microbiology Results Blood cultures were drawn at [facility], And I have called and spoken with their lab/micro Department to request that they fax all preliminary and final blood culture reports to the apartment community manager in the [facility] We will add blood cultures 2 sets (please note that these will be done following the administration of Unasyn at [facility]). Discharge Medications Discharge Medications Levofloxacin (Levofloxacin) 750 Mg Tablet 750 MG PO DAILY Prescribed by: JOEY BRUNSON MD Pantoprazole DR (Pantoprazole DR) 20 Mg Tablet.dr 20 MG PO DAILY Prescribed by: JOEY BRUNSON MD As needed oxyCODONE (oxyCODONE) 5 Mg Tablet 5 MG PO Q4H PRN PRN For Moderate Pain Prescribed by: JOEY BRUNSON MD Followup Plan Disposition: Home with home health Follow-up plan 1. Followup with primary care provider (Dr. Coles) in 3-4 days 2. Followup with general surgery (Dr. Love or his physician electrical assistant) in one week. [address] [address] Discharge Diet: No restrictions Discharge Activity: No restrictions Patient Instructions Seek immediate medical attention if any new or worsening signs or symptoms occur. Follow-up Provider: Seun Coles MD Provider: Logan Love MD Time spent 35 min copies to: Seun Coles MD; Logan Love MD, Masoud May 07, 2016 16:03
--- NOTE | 2016-05-07 16:19 | NUR ---
Discharge Reviewed discharge paperwork, care notes, medications with pt and waiver signed. IV DCd intact, assessed incision sites - no s/sx of infection, all belongings with pt. Pt taken down curbside via WC. Sister driving pt home.
== END 2016-05-07 16:13 | disposition home or self-care (01) | DRG 854 ==
LOC: MPC 21:47
PROVIDERS: ADMIT Internal Medicine; ATTEND Internal Medicine
PROC: 0FC98ZZ Extirpation of Matter from Common Bile Duct, Via Natural or Artificial Opening Endoscopic (ICD-10-PCS; 2016-05-04)
PROC: 0FB24ZX Excision of Left Lobe Liver, Percutaneous Endoscopic Approach, Diagnostic (ICD-10-PCS; 2016-05-06)
PROC: 0FT44ZZ Resection of Gallbladder, Percutaneous Endoscopic Approach (ICD-10-PCS; principal; 2016-05-06 09:30)
DX: A41.51 Sepsis due to Escherichia coli [E. coli] (principal); K80.32 Calculus of bile duct with acute cholangitis without obstruction; K80.42 Calculus of bile duct with acute cholecystitis without obstruction; R17 Unspecified jaundice; R65.20 Severe sepsis without septic shock; E87.6 Hypokalemia; R94.5 Abnormal results of liver function studies